=== PATIENT | female | born 1960 | race Caucasian/White ===

== ENCOUNTER → 2024-03-26 10:31 | Outpatient (REF) | payer MEDICARE, SELFPAY | LOC: HWWDC 10:31 | PROVIDERS: ATTENDING PHYSICIAN Nurse Practitioner Adult Health | DX: Z12.31 Encounter for screening mammogram for malignant neoplasm of breast (principal); Z78.0 Asymptomatic menopausal state | CPT/HCPCS: 77063; 77067; 77080 ==

== ENCOUNTER → 2025-01-30 10:25 | Outpatient (REF) | payer MEDICARE, SELFPAY ==
[2025-01-30 11:34] LABS: Hematocrit 44.0 % (37.0-47.0); Hemoglobin 14.2 g/dL (12.0-16.0); Mean Corp Hgb Conc. 32.3 g/dL (33.0-37.0); Mean Corpuscular Volume 90.9 fL (81.0-99.0); Nucleated Red Blood Cells % 0 %; Platelet Count 315 10^3/uL (130-400); Red Cell Dist. Width 12.8 % (11.5-14.5)
[2025-01-30 12:04] LABS: ALT (SGPT) 20 U/L (0-35); AST (SGOT) 24 U/L (14-36); Albumin 4.6 g/dl (3.5-5.0); Alkaline Phosphatase 82 U/L (38-126); Blood Urea Nitrogen 12 mg/dl (7-17); Calcium 9.6 mg/dl (8.4-10.2); Carbon Dioxide 26 mmol/L (22-30); Chloride 105 mmol/L (98-107); Glucose 94 mg/dl (70-99); Potassium 4.7 mmol/L (3.5-5.1); Sodium 137 mmol/L (135-145); Total Protein 7.5 g/dl (6.3-8.2); eGFR > 60.00
== END ==
LOC: SDSPAT 10:25
PROVIDERS: ATTENDING PHYSICIAN Orthopaedic Surgery Orthopaedic Surgery of the Spine; FAMILY PHYSICIAN Nurse Practitioner Adult Health
DX: Z01.818 Encounter for other preprocedural examination (principal)
CPT/HCPCS: 36415; 80053; 85025; 86850; 86900; 86901; 87070; 93005

== ENCOUNTER 2025-02-12 05:51 | Day surgery (SDC) | payer MEDICARE, SELFPAY ==
[2025-01-30 13:59] VITALS: BMI 28.7
[2025-01-30 14:49] VITALS: BMI 28.7
[2025-02-04 10:50] VITALS: BMI 28.7
[2025-02-12] VITALS (10 sets, daily range): BP systolic 101–152; BP diastolic 56–85; BMI 28.7
[2025-02-12] MEDS: CELEBREX 200 MG PO (06:18)
[2025-02-12] MEDS: TYLENOL 1000 MG PO (06:18)
[2025-02-12] MEDS: METHOCARBAMOL 1500 MG PO (06:18)
[2025-02-12] MEDS: LYRICA 150 MG PO (06:19)
[2025-02-12] MEDS: NORMOSOL-R/PLASMALYTE-A 1000 IV (06:35)
[2025-02-12] MEDS: ZOFRAN 4 MG IV (08:50)
== END 2025-02-12 10:56 | disposition home or self-care (01) ==
LOC: SDS 05:51
PROVIDERS: ATTENDING PHYSICIAN Orthopaedic Surgery Orthopaedic Surgery of the Spine
DX: M48.07 Spinal stenosis, lumbosacral region (principal)
CPT/HCPCS: 63047; 72020; C1729